=== PATIENT | female | born 1995 | race Caucasian/White ===

== ENCOUNTER 2018-10-12 04:48 | Emergency (ER) | payer BC ==
[2018-10-12] MEDS ORDERED: oxyCODONE/Acetamin 5/325 MG* TAB PO ONE (05:27)
--- NOTE | 2018-10-12 05:29 | ED ---
Complex/Multi-Sys Presentation - HPI Summary HPI Summary: Patient is a 23 y/o F presenting to ED with complaints of right ear and jaw pain. Pain onset three days ago and has progressively worsened since onset. Pain is characterized as a dull ache. Patient went to two days ago. It is reported that fluid buildup was found behind the right eardrum. Patient was placed on antibiotics. However, patient has not experienced any relief in Sx. Fever and jaw clicking are denied. On triage, pain is rated 6/10. Nothing is noted to aggravate/alleviate Sx. Home medications and allergies are reviewed. - History Of Current Complaint Hx Obtained From: Patient Onset/Duration: Lasting Days - three days ago onset, Still Present, Worse Since Timing: Constant, Days - three days ago onset Severity Currently: Moderate Severity Initially: Mild Location: Pain At: - right ear, jaw Character: Dull Aggravating Factor(s): nothing Alleviating Factor(s): nothing Associated Signs And Symptoms: Positive: Other - jaw and right ear pain, no jaw clicking. 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 BONE MARROW BIOPSIES. CHOLECYSTECTOMY Infectious Disease History: No Infectious Disease History: Denies: Traveled Outside the [place] in Last 30 Days - Family History Known Family History: Negative: Respiratory Disease - Social History Alcohol Use: None Substance Use Type: Reports: None Review of Systems Negative: Fever ENT: Other - POSITIVE - RIGHT EAR PAIN Musculoskeletal: Other - POSITIVE - JAW PAIN; NEGATIVE - JAW CLICKING All Other Systems Reviewed And Are Negative: Yes Physical Exam - Summary Physical Exam Summary: VITAL SIGNS: Reviewed. GENERAL: Patient is a well-developed and nourished female who is lying comfortable in the stretcher. Patient is not in any acute respiratory distress. HEAD AND FACE: No signs of trauma. No ecchymosis, hematomas or skull depressions. No sinus tenderness. Tenderness over right TMJ EYES: PERRLA, EOMI x 2, No injected conjunctiva, no nystagmus. EARS: Hearing grossly intact. Ear canals and tympanic membranes are within normal limits. MOUTH: Oropharynx within normal limits. NECK: Supple, trachea is midline, no adenopathy, no JVD, no carotid bruit, no c- spine tenderness, neck with full ROM CHEST: Symmetric, no tenderness at palpation LUNGS: Clear to auscultation bilaterally. No wheezing or crackles. CVS: Regular rate and rhythm, S1 and S2 present, no murmurs or gallops appreciated. ABDOMEN: Soft, non-tender. No signs of distention. No rebound no guarding, and no masses palpated. Bowel sounds are normal. EXTREMITIES: FROM in all major joints, no edema, no cyanosis or clubbing. NEURO: Alert and oriented x 3. No acute neurological deficits. Speech is normal and follows commands. SKIN: Dry and warm Triage Information Reviewed: Yes Vital Signs On Initial Exam: Initial Vitals Temp Pulse Resp BP Pulse Ox 97.5 F 78 16 138/111 97 10/12/18 04:50 10/12/18 04:50 10/12/18 04:50 10/12/18 04:50 10/12/18 04:50 Vital Signs Reviewed: Yes Diagnostics - Vital Signs Vital Signs Temp Pulse Resp BP Pulse Ox 10/12/18 04:50 97.5 F 78 16 138/111 97 - Laboratory Lab Statement: Any lab studies that have been ordered have been reviewed, and results considered in the medical decision making process. Complex Multi-Symp Course/Dx Course Of Treatment: Patient is a 23 y/o F presenting to ED with complaints of right ear and jaw pain. Pain onset three days ago and has progressively worsened since onset. Pain is characterized as a dull ache. Patient went to two days ago. It is reported that fluid buildup was found behind the right eardrum. Patient was placed on antibiotics. However, patient has not experienced any relief in Sx. Fever and jaw clicking are denied. On physical exam, tenderness over right TMJ is noted, ears appear normal. During ED course, patient received Percocet 5/325, 2 tabs. Patient will be discharged to home and follow up with an oral surgeon. She is agreeable with this plan. - Diagnoses Provider Diagnoses: Temporomandibular joint pain Discharge - Sign-Out/Discharge Documenting (check all that apply): Patient Departure - discharge Patient Received Moderate/Deep Sedation with Procedure: No - Discharge Plan Condition: Stable Disposition: HOME Prescriptions: oxyCODONE/Acetamin 5/325 MG* [Percocet 5/325 TAB*] 1 tab PO Q6H PRN #10 tab MDD 4 PRN Reason: Pain Patient Education Materials: Temporomandibular Disorder (ED) Referrals: Angelo Shannon, [employer] [Primary Care Provider] - Tye Arriaga MD [Doctor of Dental Medicine] - 3 Days Additional Instructions: PLEASE RETURN TO THE ED IMMEDIATELY FOR WORSENING OR CONCERNING SYMPTOMS. FOLLOW UP WITH ORAL SURGEON WITHIN THREE DAYS. - Attestation Statements Document Initiated by Scribe: Yes Documenting Scribe: CHERYL CAMPBELL Provider For Whom Scribe is Documenting (Include Credential): JASON CANAS MD Scribe Attestation: CHERYL Langley, scribed for JASON CANAS MD on 10/12/18 at 0557.
[2018-10-12 06:39] VITALS: BP 121/78
== END 2018-10-12 06:00 | disposition home or self-care (01) ==
LOC: ED 04:48
DX: M26.621 Arthralgia of right temporomandibular joint (principal); Z88.1 Allergy status to other antibiotic agents; Z88.8 Allergy status to other drugs, medicaments and biological substances
CPT/HCPCS: 99282; A9270-GY